=== PATIENT | female | born 1960 | race Caucasian/White ===

== ENCOUNTER → 2020-09-23 00:21 | Outpatient (CLI) | payer OTHER, SELFPAY ==
[2020-09-23 19:33] LABS: SARS-CoV-2 RNA PCR Negative
== END ==
PROVIDERS: PCP Emergency Medicine; Visit Provider Surgery
DX: Z01.812 Encounter for preprocedural laboratory examination (principal); Z20.822 Contact with and (suspected) exposure to COVID-19
CPT/HCPCS: C9803; U0003; U0005

== ENCOUNTER 2020-09-25 08:09 | Outpatient (CLI) | payer OTHER, SELFPAY ==
--- NOTE | 2020-09-25 08:15 | ECG_ITS ---
Measurements Intervals [place] Rate: 64 P: 27 MN: 152 QRS: 10 QRSD: 93 T: 34 QT: 391 QTc: 404 Interpretive Statements SINUS RHYTHM DELAYED PRECORDIAL R/S TRANSITION BASELINE ARTIFACT- I, II, III, AVR, AVL, AVF BORDERLINE ECG Electronically Signed On 09-25-2020 8:31:25 [employer]PERIENCE PLANNING STRATEGIST by Serge Roach D.O.
[2020-09-25 08:35] LABS: Hemoglobin 14.6 g/dL (12.0-15.0)
== END 2020-09-25 08:10 | disposition home or self-care (01) ==
LOC: ANHSURGERY 08:12
PROVIDERS: Anesthesiology; PCP Emergency Medicine; Visit Provider Surgery
DX: K43.2 Incisional hernia without obstruction or gangrene (principal); F17.210 Nicotine dependence, cigarettes, uncomplicated; Z01.818 Encounter for other preprocedural examination; R94.31 Abnormal electrocardiogram [ECG] [EKG]
CPT/HCPCS: 36415; 85014; 85018; 93005

== ENCOUNTER 2020-09-27 14:28 | Observation (INO) | payer OTHER, SELFPAY ==
[2020-09-18 19:12] VITALS: BMI 38.6
--- NOTE | 2020-09-24 17:39 | PM.IMHP ---
H&P: HPI History of Present Illness Date/Time: 09/24/20 17:39 Chief Complaint: incisional hernia Narrative: Angie Ponce is a 60 year old female who had hand assisted laparoscopic sigmoidectomy for diverticulitis in November of 2014. In [address] scan of the abdomen for some abdominal pain and was found to have an incisional hernia. The hernia is easily palpable. It has gotten bigger and is more painful. She is generally unable to reduce the hernia. The pain is worse with activity and particularly affects her ability to do her job. She is afraid this could affect her employment. The patient is taken to surgery now for incisional hernia repair with mesh, possible transversus abdominis myofascial flap advancement. Her only other abdominal surgery was noted to be a tubal ligation. Review of Systems Review of Systems: All systems reviewed & are unremarkable except as noted in HPI and below Constitutional: Constitutional: Denies chills, Reports fatigue, Denies fever(s) and Reports night sweats ENT: Denies headache(s), Reports nasal discharge, Reports sinus pressure and Reports other ( edentulous, wears dentures) Cardiovascular: Cardiovascular: Denies chest pain, Denies diaphoresis, Denies dyspnea, Denies paroxysmal nocturnal dyspnea and Reports other ( Palpitations) Respiratory: Respiratory: Denies chest congestion, Denies cough and Denies dyspnea Gastrointestinal: Gastrointestinal: Denies bloating, Denies constipation and Denies nausea Integumentary/Breasts: Skin/Breast: Denies lesions and Denies rash Neurologic: Denies confusion and Denies headache(s) Psychiatric: Psychiatric: Reports abnormal sleep pattern [facility] Past Medical History Medical History Asthma High cholesterol History of kidney stones Surgical History Surgical History History of carpal tunnel release History of partial colectomy History of tubal ligation Family History Family History Father Hypertension Family history of diabetes mellitus in first degree relative Family history of lung cancer Family history of heart disease in male family member before age 55 Mother Hypertension Sibling Hypertension Cerebrovascular accident Family history of chronic obstructive pulmonary disease Family history of diabetes mellitus in first degree relative Acute myocardial infarction Social History Social History Smoking status: Heavy tobacco smoker Tobacco type: cigarettes Smoking end date: 08/02/17 Additional smoking assessment comments: 1ppd x 40years Alcohol intake: never Living arrangements: with family Additional occupation/education comments: self employed Spiritual care concerns: No Meds Home Medications and Allergies Home Medications Medication Instructions Recorded Confirmed Type ascorbic acid (vitamin C) [Vitamin 500 mg PO DAILY 08/23/19 09/26/20 History C] aspirin [Adult Low Dose Aspirin] 81 mg PO DAILY 08/23/19 09/26/20 History cholecalciferol (vitamin D3) 2,000 unit PO DAILY 08/23/19 09/26/20 History [Vitamin D3] cinnamon bark [Cinnamon] 1,000 mg PO DAILY 08/23/19 09/26/20 History omega-3 fatty acids 1,000 mg 1,000 mg PO DAILY 08/16/20 09/26/20 History capsule albuterol sulfate 1 puff INHALATION PRN 09/18/20 09/26/20 History magnesium 400 mg PO DAILY 09/18/20 09/26/20 History polyethylene glycol 3350 [Miralax] 17 g PO DAILY 09/26/20 09/26/20 History psyllium husk [Metamucil] 1 tbsp PO DAILY 09/26/20 09/26/20 History Allergies Allergy/AdvReac Type Severity Reaction Status Date / Time hydrocodone AdvReac Intermediate Vomiting Verified 09/18/20 18:42 Exam Const: General: cooperative, comfortable, no acute distress, alert and awake; No confusion Nutritional Appearance: ob
--- NOTE | 2020-09-25 10:20 | WPDANESEPPF ---
Anes - Initial Pre Proc Eval Procedure: Operation Date: 09/26/20 10:30 Proposed Procedures p Repair Incisional Hernia With Mesh, Posterior Component Separation - Rodrigo Mota MD Date/Time: 09/25/20 10:20 Surgeon: Rodrigo Mota MD Pre Op Diagnosis: Incisional Hernia Patient Data Age: 60 Gender: F Height: 1.71 m Weight: 113.63 kg Allergies Allergy/AdvReac Type Severity Reaction Status Date / Time hydrocodone AdvReac Intermediate Vomiting Verified 09/18/20 18:42 Home Medications Medication Instructions Recorded Confirmed Type ascorbic acid (vitamin C) [Vitamin 500 mg PO DAILY 08/23/19 09/26/20 History C] aspirin [Adult Low Dose Aspirin] 81 mg PO DAILY 08/23/19 09/26/20 History cholecalciferol (vitamin D3) 2,000 unit PO DAILY 08/23/19 09/26/20 History [Vitamin D3] cinnamon bark [Cinnamon] 1,000 mg PO DAILY 08/23/19 09/26/20 History omega-3 fatty acids 1,000 mg 1,000 mg PO DAILY 08/16/20 09/26/20 History capsule albuterol sulfate 1 puff INHALATION PRN 09/18/20 09/26/20 History magnesium 400 mg PO DAILY 09/18/20 09/26/20 History polyethylene glycol 3350 [Miralax] 17 g PO DAILY 09/26/20 09/26/20 History psyllium husk [Metamucil] 1 tbsp PO DAILY 09/26/20 09/26/20 History Patient hx anesthesia problems: none Family hx anesthesia problems: none PMFSH Past Medical History Medical History Asthma High cholesterol History of kidney stones Surgical History Surgical History History of carpal tunnel release History of partial colectomy History of tubal ligation Family History Family History Father Hypertension Family history of diabetes mellitus in first degree relative Family history of lung cancer Family history of heart disease in male family member before age 55 Mother Hypertension Sibling Hypertension Cerebrovascular accident Family history of chronic obstructive pulmonary disease Family history of diabetes mellitus in first degree relative Acute myocardial infarction Social History Social History Smoking status: Heavy tobacco smoker Tobacco type: cigarettes Smoking end date: 08/02/17 Additional smoking assessment comments: 1ppd x 40years Alcohol intake: never Living arrangements: with family Additional occupation/education comments: self employed Spiritual care concerns: No Anes - Eval Final PreProcedure Day of Procedure 09/25/20 10:20 Patient weight: obese Heart: regular rate and rhythm Lungs: clear to auscultation and normal air movement Airway: Mallampati scale class III Neurological: alert and oriented Last oral intake: >/= 8 hours ASA classification: III Emergent: no Anesthetic plan: proceed Anesthesia type and monitoring: general ETT and standard monitoring Informed Consent: The patient's anesthetic plan and its attendant risks and benefits were discussed with the patient/family/POA. Questions were solicited and answers provided to the satisfaction of the patient/family/POA.
[2020-09-26] VITALS (13 sets, daily range): BP systolic 121–143; BP diastolic 60–107; PULSE 57–82; RESP 14–20; TEMP 36.1–36.6; O2SAT 91–100
[2020-09-26] MEDS: ACETAMINOPHEN 500 MG TABLET 1000 MG PO (09:36)
[2020-09-26] MEDS: LACTATED RINGERS 1,000 ML 30 ML IV CONT ×3 (09:40→14:15)
[2020-09-26] MEDS: KETOROLAC 15 MG/ML VIAL (*BKC) IV PUSH (09:42)
--- NOTE | 2020-09-26 10:21 | WPDHPUPDATE1 ---
History and Physical Update Update Date/Time: 09/26/20 10:21 History and Physical has been reviewed, including an updated exam of the patient. There are NO changes in the patient's condition. Risks, benefits, and alternatives have been discussed and questions answered. Patient agrees to proceed with procedure.
[2020-09-26] MEDS: ceFAZolin 2 GM/D5W 50 ML 2 GM/50 ML BAG IVPB (10:32)
[2020-09-26] MEDS: ONDANSETRON INJ 4 MG/2 ML VIAL IV PUSH (14:01)
--- NOTE | 2020-09-26 14:08 | PM.PROC ---
Procedure Note - Detailed Date of procedure: 09/26/20 Pre-op diagnosis: Incisional Hernia Incisional hernia Post-op diagnosis: same Procedure performed: Incisional hernia repair with mesh, right-sided transversus abdominis myofascial flap advancement 6 cm. Description of procedure: The patient was taken to surgery and induced into general anesthesia. Perkins catheter was placed. The entire abdomen was prepped and draped. The previous scar was excised and discarded. Incision was created above and below the umbilicus and was carried down through the midline fascia. The peritoneal cavity was entered and the peritoneal was extended the length the wound. The hernia was identified and was a sizable defect in the midline but mostly involving the right side of the fascia. There was also an umbilical hernia.. There were some omental adhesions to the anterior abdominal wall. These were taken down sharply. There was essentially no blood loss. Cautery was used for hemostasis. I started with the patient's left side. A retro rectus plane was developed and extended the length of the wound as well as all the way down to the suprapubic area. The retro rectus plane was particularly wide on the patient's left side. It was also extended up under the xiphoid in the cephalad direction. It did not appear that we would need to do a transversus abdominis release on the left as there was a very wide rectus muscle and very little fascia defect on the left side of midline. I then went to the patient's left side and started the same dissection on the right. The right posterior rectus sheath was freed from the rectus muscle. I established the posterior rectus plane here as well. Similarly this plane was continued all the way up to the area beyond the xiphoid and down to the retropubic area. The left and right posterior rectus planes were connected with one another cephalad and caudad. There was still too much tension to close the posterior rectus fascia to itself, so I did go ahead with a transversus abdominis release on the patient's right side. I started again at the right costal margin and divided the transversus abdominis muscle over a clamp. This was continued all the way down to the semi circular line. I divided the transversus medial to the neurovascular bundles innervating the overlying rectus muscle. There were a few holes in the peritoneum that I repaired with 3 0 Vicryl suture. I then dissected far laterally to the axillary line in the plane deep to the transversus. Once this was completed, I reviewed all the areas of dissection. Hemostasis was good and there was an extensive plane that the mesh could be placed within. I then closed the posterior rectus fascia to itself with running 0 Vicryl suture. An extra large piece of soft polypropylene mesh was brought into the field. It was evident that 1 piece of mesh would not be enough to sufficiently cover the entire plane of dissection. The 1st piece of mesh was placed in rectangular fashion with the mesh slightly centered more to the right where the more extensive dissection in the space deep to the transversus abdominis had been performed. It still covered all the way to the edge of the rectus muscle on the left side. This 1st piece was placed predominantly in the upper abdomen. A 2nd piece of mesh was brought into the field. This piece of mesh was placed in rosalinda fashion. It covered the retropubic area as well as the entire area of the hernia. Once it was laid out in good position, I placed a 19 [place] Alonzo drain in the retrorectus space and brought it out through the left lower quadrant. It was sutured to the skin with 2 0 silk. I then proceeded with closure of the midline fascia. #1 PDS suture was used in bidirectional running fashion to close the midline fascia. I closed the subcutaneous with interrupted 3 0 Vicryl sutures. The skin was loosely approximated with interrupted 4 0 Vicryl suture. The wound was dressed
[2020-09-26] MEDS: fentaNYL CITRATE INJ (*CRX) 100 MCG/2 ML VIAL 25 MCG IV PUSH ×4 (14:18→15:15)
[2020-09-26] MEDS: diphenhydrAMINE HCl INJ 50 MG/ML VIAL 25 MG IV PUSH (14:42)
[2020-09-26] MEDS: SCOPOLAMINE 1.5 MG PATCH TRANSDERM (14:42)
--- NOTE | 2020-09-26 16:15 | ADMGEN ---
This patient, Angie Ponce, was admitted to Medical Room 248-. Patient/family oriented to hospital policies and general routines including ID bracelet, bed and alarms, visiting hours, pain management, procedures, bathroom and other care routines, personal items, smoking policy, room service/diet, and visiting hours. Information on how to activate the Rapid Response Team has been discussed. Patient/Family are encouraged to report perceived risks to care and to ask questions if they do not understand what they are told or what they should do.
[2020-09-26] MEDS: MORPHINE SULFATE (*CRX) 4 MG/ML INJ IV PUSH ×2 (16:30→20:40)
[2020-09-26] MEDS: IBUPROFEN IV 800 MG/200 ML 800 MG/200 ML BAG 400 MG IVPB ×2 (17:26→23:23)
[2020-09-26] MEDS: LACTATED RINGERS 1,000 ML 100 ML IV CONT (17:26)
[2020-09-26] MEDS: FAMOTIDINE 20 MG/2 ML VIAL IV PUSH (20:33)
[2020-09-26] MEDS: ENOXAPARIN 30 MG/0.3 ML SYRINGE SUB-Q (20:33)
[2020-09-27] VITALS (7 sets, daily range): BP systolic 103–118; BP diastolic 47–56; PULSE 66–73; RESP 14–16; TEMP 36–37.3; O2SAT 93–96
[2020-09-27 05:24] LABS: Hematocrit 36.5 % (37.0-47.0); Hemoglobin 11.9 g/dL (12.0-15.0); Mean Corpuscular HGB Conc 32.6 g/dl (32-36); Mean Corpuscular Hemoglobin 29.9 pg (26-34); Mean Corpuscular Volume 91.7 fl (80-100); Mean Platelet Volume 9.2 fl (7.4-10.4); Platelet Count Result 243 k/mm3 (150-375); Red Blood Count 3.98 M/mm3 (4.2-5.4); Red Cell Distribution Width 13.1 % (11.5-14.5)
[2020-09-27 05:41] LABS: Anion Gap 5 mmol/L (8-16); Blood Urea Nitrogen 19 mg/dL (7-17); Calcium 8.9 mg/dL (8.4-10.2); Carbon Dioxide 28 mmol/L (22-30); Chloride 104 mmol/L (98-107); Estimated CRCL calculation 80 ml/min; Estimated Glomerular Filt Rate > 60; Glucose 111 mg/dL (65-105); Potassium 4.4 mmol/L (3.4-5.0); Sodium 137 mmol/L (137-145)
[2020-09-27] MEDS: IBUPROFEN IV 800 MG/200 ML 800 MG/200 ML BAG 400 MG IVPB ×3 (06:05→17:24)
[2020-09-27] MEDS: LACTATED RINGERS 1,000 ML 100 ML IV CONT ×2 (06:07→15:32)
[2020-09-27] MEDS: ACETAMINOPHEN 500 MG TABLET PO ×2 (07:49→13:49)
[2020-09-27] MEDS: ENOXAPARIN 30 MG/0.3 ML SYRINGE SUB-Q ×2 (09:18→20:20)
[2020-09-27] MEDS: ASPIRIN 81 MG ENTERIC TABLET PO (09:19)
[2020-09-27] MEDS: CHOLECALCIFEROL 1,000 UNITS TABLET 2000 UNITS PO (09:19)
[2020-09-27] MEDS: ASCORBIC ACID 500 MG TABLET PO (09:19)
[2020-09-27] MEDS: PSYLLIUM POWDER PACKET 1 PACKET PO ×2 (09:19→17:28)
[2020-09-27] MEDS: FAMOTIDINE 20 MG/2 ML VIAL IV PUSH (09:19)
[2020-09-27] MEDS: polyethylene glycoL 3350 17 GM POWD.PACK PO (09:32)
[2020-09-27] MEDS: MAGNESIUM OXIDE 400 MG TABLET PO (09:49)
[2020-09-27] MEDS: OMEGA 3 POLYUNSAT FATTY ACIDS 1 GM CAP PO (09:49)
--- NOTE | 2020-09-27 10:48 | WPDANESPN ---
Anes - Prog Note Post-Op Date/Time: 09/27/20 10:48 Cardiovascular status: normal Respiratory status: normal Airway patency: baseline Mental status: baseline Post-Op hydration status: normal Vital Signs: Last Vital Signs Temp 36.0 C L 09/27/20 07:39 Pulse 68 09/27/20 07:39 Resp 16 09/27/20 09:34 BP 106/51 L 09/27/20 07:39 Pulse Ox 93 09/27/20 09:34 Pain Score (VAS): 3 I/O: Intake & Output 09/26/20 09/27/20 09/27/20 23:59 07:59 15:59 Intake Total 750 1600 Output Total 20 570 Balance 730 1030 Laboratory Tests 09/27/20 05:01 09/27/20 05:01 09/27/20 09/27/20 05:01 05:01 WBC 13.0 H RBC 3.98 L Hgb 11.9 L Hct 36.5 L MCV 91.7 MCH 29.9 MCHC 32.6 RDW 13.1 Plt Count 243 MPV 9.2 Sodium 137 Potassium 4.4 Chloride 104 Carbon Dioxide 28 Anion Gap 5 L BUN 19 H Creatinine 0.90 Estim Creat Clear Calc 80 Estimated GFR > 60 Glucose 111 H Calcium 8.9 Post-procedural complaints: none Patient Feedback: Patient satisfied with anesthetic care.
--- NOTE | 2020-09-27 12:13 | PM.PNGS ---
Progress Note: A&P Assessment and Plan (1) Incisional hernia without obstruction or gangrene: Code(s): K43.2 - Incisional hernia without obstruction or gangrene Status: Chronic Assessment and Plan: doing well postop day 1. Patient will get out of bed and at least up in a chair today. Encouraged use of incentive spirometer. Continue regular dose of IV ibuprofen for now. Also has p.r.n. doses Percocet or IV morphine. SHIV Perkins tomorrow. Advance diet slowly. Patient does have chronic constipation and I have given her both Metamucil and MiraLax as well as Senokot at bedtime. She will take the Metamucil twice a day, the MiraLax will be once a day. Repeat labs and clinical exam again tomorrow. So far doing well. Pain control is adequate and amount of pain is not unexpected. Subjective Subjective Date/Time Seen: 09/27/20 12:13 Post Op day: 1 Patient reports: still having pain ( P.r.n. analgesics helped, tolerable), tolerating liquids well, no flatus, no bowel movement and afebrile Review of Systems Review of Systems: All systems reviewed & are unremarkable except as noted in HPI and below Constitutional: Constitutional: Denies headache(s) Cardiovascular: Cardiovascular: Denies chest pain and Denies dyspnea Respiratory: Respiratory: Denies cough and Denies dyspnea Gastrointestinal: Gastrointestinal: Reports as per HPI, Reports abdominal pain, Denies nausea and Denies vomiting Neurologic: Denies confusion and Denies headache(s) Exam Const: General: comfortable and no acute distress; No confusion Orientation/consciousness: patient oriented x3 and No confusion GI: Inspection: incision ( did expected bloody drainage, intact, no active bleeding, no hematoma.), obesity and other ( AFUA drain output largely sanguinous) GI Palp: Yes Soft to palpation, Yes Tenderness to palpation present (GI) ( Remains diffusely tender, incisional.), No Guarding due to palpation present (GI), No Hernia present, No Palpable mass present and No Rebound tenderness present Auscultation: Hypoactive bowel sounds present Urinary Catheter: Urinary Catheter: patent and draining Neuro: General: patient oriented x3, no focal motor deficits and No confusion Extrem: General: no calf tenderness and no edema Psych: Affect: normal affect Insight: Good insight present (Psych) Judgement: Good judgement present (Psych) Objective Data Vital Signs Vital Signs: Vital Signs - 24 hr 09/26/20 13:42 09/26/20 13:55 09/26/20 14:10 Temperature 36.6 C Pulse Rate 82 61 57 L Respiratory Rate 16 16 15 Blood Pressure 130/91 H 141/71 H 143/80 H Pulse Oximetry 100 100 100 09/26/20 14:25 09/26/20 14:50 09/26/20 15:05 Temperature Pulse Rate 60 65 68 Respiratory Rate 15 14 14 Blood Pressure 132/107 H 125/75 129/66 Pulse Oximetry 93 91 91 09/26/20 15:20 09/26/20 15:35 09/26/20 15:45 Temperature Pulse Rate 68 67 66 Respiratory Rate 14 14 20 Blood Pressure 121/73 125/72 135/70 Pulse Oximetry 92 96 97 09/26/20 18:03 09/26/20 20:00 09/26/20 21:50 Temperature 36.6 C 36.1 C L Pulse Rate 66 63 63 Respiratory Rate 18 16 16 Blood Pressure 143/71 H 128/60 Pulse Oximetry 97 96 96 09/27/20 01:20 09/27/20 04:00 09/27/20 07:39 Temperature 36.7 C 36.7 C 36.0 C L Pulse Rate 73 72 68 Respiratory Rate 16 16 14 Blood Pressure 105/50 L 118/51 L 106/51 L Pulse Oximetry 94 95 93 09/27/20 09:34 09/27/20 10:54 Temperature 37.3 C Pulse Rate 72 Respiratory Rate 16 15 Blood Pressure 103/47 L Pulse Oximetry 93 95 Intake/Output Intake/Output: Intake & Output 09/24/20 09/25/20 09/26/20 09/27/20 23:59 23:59 23:59 23:59 Intake Total 2800 1600 Output Total 145 570 Balance 2655 1030 Meds/Results Medications: Active Medications Generic Name Dose Route Start Last Admin Trade Name Freq PRN Reason Stop Dose Admin Acetaminophen 500 mg 09/26/20 16:10 09/27/20 07:49 Acetaminophen 500 Mg Tablet PO 500 mg
--- NOTE | 2020-09-27 16:04 | PC.NURSE ---
On 09/27/20, the student, [ Christine Campbell], provided care and completed [facility] documentation on this patient. I have reviewed the student's documentation and agree with the findings.
[2020-09-27] MEDS: FAMOTIDINE 20 MG TABLET PO (20:20)
[2020-09-27] MEDS: SENNA/DOCUSATE SODIUM TABLET 2 TAB PO (20:20)
[2020-09-27] MEDS: LACTATED RINGERS 1,000 ML 80 ML IV CONT (23:29)
[2020-09-27] MEDS: IBUPROFEN IV 800 MG/200 ML 800 MG/200 ML BAG 200 MG IVPB (23:29)
[2020-09-28] VITALS: BP 122/54; PULSE 67; RESP 16; TEMP 36.3; O2SAT 95
[2020-09-28 05:28] LABS: Hematocrit 35.8 % (37.0-47.0); Hemoglobin 11.4 g/dL (12.0-15.0); Mean Corpuscular HGB Conc 31.8 g/dl (32-36); Mean Corpuscular Hemoglobin 29.5 pg (26-34); Mean Corpuscular Volume 92.5 fl (80-100); Mean Platelet Volume 9.2 fl (7.4-10.4); Platelet Count Result 227 k/mm3 (150-375); Red Blood Count 3.87 M/mm3 (4.2-5.4); Red Cell Distribution Width 13.3 % (11.5-14.5); White Blood Count 9.6 K/mm3 (4.5-10.0)
[2020-09-28 05:44] VITALS: BP 139/53; PULSE 60; RESP 16; TEMP 35.9; O2SAT 96
[2020-09-28 05:50] LABS: Potassium 3.7 mmol/L (3.4-5.0)
[2020-09-28 05:59] LABS: Anion Gap 3 mmol/L (8-16); Blood Urea Nitrogen 14 mg/dL (7-17); Calcium 8.5 mg/dL (8.4-10.2); Carbon Dioxide 31 mmol/L (22-30); Chloride 107 mmol/L (98-107); Estimated CRCL calculation 89 ml/min; Estimated Glomerular Filt Rate > 60; Glucose 99 mg/dL (65-105); Sodium 141 mmol/L (137-145)
[2020-09-28] MEDS: IBUPROFEN IV 800 MG/200 ML 800 MG/200 ML BAG 400 MG IVPB (06:47)
[2020-09-28] MEDS: oxyCODONE/ACETAMINOPHEN (*CRX) 5-325 MG TABLET 1 TABLET PO ×2 (06:56→12:14)
[2020-09-28 08:15] VITALS: BP 142/58; PULSE 76; RESP 16; TEMP 35.9; O2SAT 96
[2020-09-28] MEDS: ASCORBIC ACID 500 MG TABLET PO (08:34)
[2020-09-28] MEDS: ASPIRIN 81 MG ENTERIC TABLET PO (08:34)
[2020-09-28] MEDS: OMEGA 3 POLYUNSAT FATTY ACIDS 1 GM CAP PO (08:34)
[2020-09-28] MEDS: PSYLLIUM POWDER PACKET 1 PACKET PO ×2 (08:35→16:05)
[2020-09-28] MEDS: FAMOTIDINE 20 MG TABLET PO ×2 (08:35→20:16)
[2020-09-28] MEDS: ENOXAPARIN 30 MG/0.3 ML SYRINGE SUB-Q ×2 (08:35→20:16)
[2020-09-28] MEDS: MAGNESIUM OXIDE 400 MG TABLET PO (08:35)
[2020-09-28] MEDS: polyethylene glycoL 3350 17 GM POWD.PACK PO (08:35)
--- NOTE | 2020-09-28 10:00 | PM.PNGS ---
Progress Note: A&P Assessment and Plan (1) Incisional hernia without obstruction or gangrene: Code(s): K43.2 - Incisional hernia without obstruction or gangrene Status: Chronic Assessment and Plan: doing well, mauricio out, low fiber diet, encourage OOB/IS Subjective Subjective Date/Time Seen: 09/28/20 10:00 feels good, decreased pain, +flatus Review of Systems Review of Systems: All systems reviewed & are unremarkable except as noted in HPI and below Exam Const: General: cooperative, comfortable and no acute distress Resp: Effort & Inspection: normal respiratory effort Auscultation: clear to auscultation bilaterally Cardio: Rate: regular rate Rhythm: regular rhythm GI: Inspection: normal to inspection, distended and incision GI Palp: Yes Soft to palpation, Yes Tenderness to palpation present (GI) and No Guarding due to palpation present (GI) Other: soft, sl dist, relinda TTP, AFUA c s/s output Objective Data Vital Signs Vital Signs: Vital Signs - 24 hr 09/27/20 10:54 09/27/20 13:33 09/27/20 21:51 Temperature 37.3 C 36.0 C L 36.4 C L Pulse Rate 72 70 66 Respiratory Rate 15 16 16 Blood Pressure 103/47 L 115/53 L 117/56 L Pulse Oximetry 95 95 96 09/28/20 00:00 09/28/20 05:44 09/28/20 08:15 Temperature 36.3 C L 35.9 C L 35.9 C L Pulse Rate 67 60 76 Respiratory Rate 16 16 16 Blood Pressure 122/54 L 139/53 L 142/58 H Pulse Oximetry 95 96 96 Intake/Output Intake/Output: Intake & Output 09/25/20 09/26/20 09/27/20 09/28/20 23:59 23:59 23:59 23:59 Intake Total 2800 4680 930 Output Total 145 2060 10 Balance 2655 2620 920 Meds/Results Medications: Active Medications Generic Name Dose Route Start Last Admin Trade Name Freq PRN Reason Stop Dose Admin Acetaminophen 500 mg 09/26/20 16:10 09/27/20 13:49 Acetaminophen 500 Mg Tablet PO 500 mg Q6H PRN Administration Mild Pain (1-3) or Fever Albuterol 1 puff 09/26/20 16:30 Albuterol Sulfate (*Sp) Aerosol 1 Puff INHALATION DAILY PRN SHORTNESS OF BREATH Ascorbic Acid 500 mg 09/27/20 09:00 09/28/20 08:34 Ascorbic Acid 500 Mg Tablet PO 500 mg DAILY CRISTOBAL Administration Aspirin 81 mg 09/27/20 09:00 09/28/20 08:34 Aspirin 81 Mg Enteric Tablet PO 81 mg DAILY CRISTOBAL Administration Enoxaparin Sodium 30 mg 09/26/20 21:00 09/28/20 08:35 Enoxaparin 30 Mg/0.3 Ml Syringe SUB-Q 30 mg Q12HR CRISTOBAL Administration Famotidine 20 mg 09/27/20 21:00 09/28/20 08:35 Famotidine 20 Mg Tablet PO 20 mg Q12HR CRISTOBAL Administration Fish Oil 1 gm 09/27/20 09:00 09/28/20 08:34 [place] 3 Polyunsat Fatty Acids 1 Gm Cap PO 1 gm DAILY CRISTOBAL Administration Ibuprofen 800 mg in 200 mls @ 400 mls/hr 09/26/20 18:00 09/28/20 07:17 Caldolor 800 Mg/200 Ml IVPB Infused Q6HR CRISTOBAL Infusion Lactated Ringer's 1,000 mls @ 80 mls/hr 09/26/20 16:10 09/27/20 23:29 Lr - Lactated Ringers Iv IV CONT 80 mls/hr .[id number] CRISTOBAL Administration Ibuprofen 800 mg 09/28/20 09:58 Ibuprofen 400 Mg Tablet PO Q6H PRN Abdominal Cramping Magnesium Oxide 400 mg 09/27/20 09:00 09/28/20 08:35 Magnesium Oxide 400 Mg Tablet PO 400 mg DAILY CRISTOBAL Administration Morphine Sulfate 2 mg 09/26/20 16:10 Morphine Sulfate (*Crx) 2 Mg/Ml Inj IV PUSH Q2H PRN Pain Rated 4-6 Morphine Sulfate 4 mg 09/26/20 16:10 09/26/20 20:40 Morphine Sulfate (*Crx) 4 Mg/Ml Inj IV PUSH 4 mg Q2H PRN Administration Pain Rated 7-10 Naloxone HCl 0.1 mg 09/26/20 16:10 Naloxone Hcl 0.4 Mg/Ml Vial IV PUSH Q2M PRN Opiate Reversal Ondansetron HCl 4 mg 09/26/20 16:10 Ondansetron Inj 4 Mg/2 Ml Vial IV PUSH Q4H PRN Nausea And Vomiting Oxycodone/Acetaminophen 1 tablet 09/26/20 16:10 09/28/20 06:56 Oxycodone/Acetaminophen (*Crx) 5-325 Mg Tablet PO 1 tablet Q4H PRN Administration Pain Rated 4-6 Oxycodone/Acetaminophen 2 tablet 09/26/20 16:10
[2020-09-28] MEDS: CHOLECALCIFEROL 1,000 UNITS TABLET 2000 UNITS PO (12:09)
[2020-09-28] MEDS: ONDANSETRON INJ 4 MG/2 ML VIAL IV PUSH (12:18)
[2020-09-28 14:30] VITALS: BP 117/57; PULSE 72; RESP 16; TEMP 36.1; O2SAT 97
[2020-09-28] MEDS: LACTATED RINGERS 1,000 ML 80 ML IV CONT (16:23)
[2020-09-28] MEDS: IBUPROFEN 400 MG TABLET 800 MG PO (17:56)
[2020-09-28 20:00] VITALS: BP 114/61; PULSE 74; RESP 18; TEMP 37.1; O2SAT 95
[2020-09-28] MEDS: SENNA/DOCUSATE SODIUM TABLET 2 TAB PO (20:16)
[2020-09-28 22:30] VITALS: O2SAT 95
[2020-09-29] VITALS: BP 126/54; PULSE 73; RESP 18; TEMP 36.5; O2SAT 95
[2020-09-29] MEDS: IBUPROFEN 400 MG TABLET 800 MG PO ×2 (03:31→10:45)
[2020-09-29 05:25] LABS: Hematocrit 33.8 % (37.0-47.0); Hemoglobin 10.8 g/dL (12.0-15.0); Mean Corpuscular Hemoglobin 29.5 pg (26-34); Mean Corpuscular Volume 92.3 fl (80-100); Mean Platelet Volume 9.1 fl (7.4-10.4); Platelet Count Result 225 k/mm3 (150-375); Red Blood Count 3.66 M/mm3 (4.2-5.4); Red Cell Distribution Width 13.1 % (11.5-14.5); White Blood Count 8.4 K/mm3 (4.5-10.0)
[2020-09-29 05:41] LABS: Anion Gap 3 mmol/L (8-16); Blood Urea Nitrogen 10 mg/dL (7-17); Calcium 8.4 mg/dL (8.4-10.2); Carbon Dioxide 30 mmol/L (22-30); Chloride 107 mmol/L (98-107); Estimated CRCL calculation 89 ml/min; Estimated Glomerular Filt Rate > 60; Glucose 111 mg/dL (65-105); Potassium 3.8 mmol/L (3.4-5.0); Sodium 140 mmol/L (137-145)
[2020-09-29 05:56] VITALS: BP 118/75; PULSE 82; RESP 20; TEMP 36.2; O2SAT 95
[2020-09-29] MEDS: ASPIRIN 81 MG ENTERIC TABLET PO (08:38)
[2020-09-29] MEDS: OMEGA 3 POLYUNSAT FATTY ACIDS 1 GM CAP PO (08:38)
[2020-09-29] MEDS: MAGNESIUM OXIDE 400 MG TABLET PO (08:38)
[2020-09-29] MEDS: FAMOTIDINE 20 MG TABLET PO (08:38)
[2020-09-29] MEDS: ASCORBIC ACID 500 MG TABLET PO (08:38)
[2020-09-29] MEDS: ENOXAPARIN 30 MG/0.3 ML SYRINGE SUB-Q (08:38)
[2020-09-29] MEDS: CHOLECALCIFEROL 1,000 UNITS TABLET 2000 UNITS PO (08:38)
--- NOTE | 2020-09-29 09:05 | PM.DS ---
DS: Admitting Diagnosis Admitting Diagnosis Admitting Diagnosis: incisional hernia DS: Discharge Diagnosis Discharge Diagnosis (1) Incisional hernia without obstruction or gangrene: Code(s): K43.2 - Incisional hernia without obstruction or gangrene Status: Chronic Assessment and Plan: s/p repair by Dr. Mota on 09/26, doing well, cont routine postop instructions as outlined in discharge packet, po analgesia, f/u 2 wks (2) Asthma: Qualifiers: Asthma severity: mild Asthma persistence: intermittent Asthma complication type: uncomplicated Qualified Code(s): J45.20 - Mild intermittent asthma, uncomplicated Code(s): J45.909 - Unspecified asthma, uncomplicated Status: Chronic Assessment and Plan: stable, cont current mgmt (3) Morbid obesity with BMI of 40.0-44.9, adult: Code(s): E66.01 - Morbid (severe) obesity due to excess calories; Z68.41 - Body mass index [BMI]40.0-44.9, adult Status: Chronic Assessment and Plan: dietary and lifestyle modifications discussed DS: Summary Hospital Course Reason for hospitalization: incisional hernia Hospital Course: Pt is a 60 y/o F presenting to hospital c large incisional hernia. Pt underwent repair c mesh by Dr. Mota on 09/26, please see op report for full details. Pt did well postop, and pain initially controlled via IV analgesia. Pt progressively c less pain, and by time of discharge all pain was controlled via po analgesia. Pt also had ROBF by the time of discharge and was able to alyson reg diet. Pt was ambulating s issue and doing well c light activity. Pt given instructions for local wound care and AFUA dc'd prior to discharge. Pt to f/u c Dr. Mota in 2 wks. Status at Discharge Functional status at discharge: independent ambulation Overall status at discharge: patient is progressing back to baseline Time Spent with Patient Time attestation: Total time spent providing and/or coordinating discharge services: Time spent: Less than 30 minutes Exam Const: General: cooperative, comfortable, no acute distress, awake and Physically active Nutritional Appearance: obese Orientation/consciousness: patient oriented x3 Resp: Auscultation: clear to auscultation bilaterally Cardio: Rate: regular rate Rhythm: regular rhythm GI: Inspection: normal to inspection, distended and incision GI Palp: Yes Soft to palpation, Yes Tenderness to palpation present (GI) and No Guarding due to palpation present (GI) Other: soft, sl dist, erlinda TTP, incision C/D/I, AFUA c scant s/s drainage and removed DS: Data Data Completed and Pending Labs on day of discharge: Labs from last 24 hours 09/29/20 09/29/20 04:59 04:59 WBC 8.4 RBC 3.66 L Hgb 10.8 L Hct 33.8 L MCV 92.3 MCH 29.5 MCHC 32.0 RDW 13.1 Plt Count 225 MPV 9.1 Sodium 140 Potassium 3.8 Chloride 107 Carbon Dioxide 30 Anion Gap 3 L BUN 10 Creatinine 0.80 Estim Creat Clear Calc 89 Estimated GFR > 60 Glucose 111 H Calcium 8.4 Discharge Plan Discharge Attending physician on discharge: Rodrigo Mota Discharging Clinician: Tammy Moreno Anticipated Discharge Date/Time: 09/29/20 09:03 Patient Disposition: Home, Self-Care Activity: may shower and other - see discharge instructions Diet: as tolerated and regular Wound Care Instructions: other - see discharge instructions Discharge Instructions: Ambulate 3-4 x per day and as tolerated. No lifting over 15-20lbs. May bathe or shower. Stairs are OK. May drive a car in 3 days. Remove any dressings before shower and replace after. Stand Alone Forms: General Discharge Instructions Follow-up/Referrals: Rodrigo Mota MD [Physician] - 2 Weeks Discharge Medications: New sennosides-docusate sodium [Senokot-S] 8.6-50 mg Tablet 2 tab PO HS Qty: 20 RF: 0 Metamucil (with sugar) 3.4 gram Powder In Packet 1 packet PO BID Qty: 30 RF: 0 oxy
== END 2020-09-29 11:00 | disposition home or self-care (01) ==
LOC: ANHSURGERY 14:32 → ANH2MED 09-29 09:05
PROVIDERS: Admitting Provider Surgery; PCP Emergency Medicine; Visit Provider Surgery
PROC: 0WQF0ZZ Repair Abdominal Wall, Open Approach (ICD-10-PCS; CPT 49560; principal; 2020-09-26 10:30)
DX: K43.2 Incisional hernia without obstruction or gangrene (principal); K59.09 Other constipation; G89.18 Other acute postprocedural pain; J45.20 Mild intermittent asthma, uncomplicated; E78.00 Pure hypercholesterolemia, unspecified; F17.210 Nicotine dependence, cigarettes, uncomplicated; Z79.82 Long term (current) use of aspirin; E66.01 Morbid (severe) obesity due to excess calories; Z68.39 Body mass index [BMI] 39.0-39.9, adult; Z90.49 Acquired absence of other specified parts of digestive tract; Z87.19 Personal history of other diseases of the digestive system
CPT/HCPCS: 49560; 49568; 15734; 36415; 80048; 85014; 85018; 85027; 93005; A9270; C1781; C9290; C9803; G0378; J0690; J1100; J1170; J1200; J1650; J1741; J1885; J2250; J2270; J2405; J2704; J2710; J3010; J7120; U0003; U0005

== ENCOUNTER 2021-03-29 17:07 | Emergency (ER) | payer OTHER, SELFPAY ==
--- NOTE | ~2021-03-29 | XR_ITS ---
XR chest 2V DATE: 03/29/2021 17:26 INDICATION: Post Covid productive cough, difficulty breathing. Past smoker. TECHNIQUE: 2 views COMPARISON: 06/17/2019 CT lung screening examinations FINDINGS: There is an ill-defined to 1.5 cm opacity overlying the lateral right upper lung field. Dif ferential diagnosis includes focal infiltrate, scarring or mass lesion. CT chest examination is recom mended. The lungs otherwise appear clear. No pleural effusion or pulmonary vascular congestion or pneumothora x. Normal heart size. No hilar or mediastinal enlargement. IMPRESSION: Ill-defined density overlying lateral right upper lung; diffusion diagnosis includes focal infiltrate , scarring or urinary mass lesion. CT thorax is recommended. Reviewed, dictated and finalized at [facility]. IMPRESSION: Ill-defined density overlying lateral right upper lung; diffusion diagnosis inc ludes focal infiltrate, scarring or urinary mass lesion. CT thorax is recommend ed.
--- NOTE | 2021-03-29 17:10 | ED.GENADULT ---
HPI - General Adult General Chief complaint: Upper Respiratory Infection Stated complaint: sob Time Seen by Provider: 03/29/21 17:42 Source: patient Mode of arrival: ambulatory Limitations: no limitations History of Present Illness HPI narrative: 60-year-old female patient presents to the [facility] with complaints of shortness of breath. Patient was recently diagnosed with Covid and has now been off quarantine for about 4 days. Patient states she continues to have worsening shortness of breath. Denies any difficulty with breathing prior to getting Covid. Patient states she was a former smoker of 45 years and quit about 2 years ago. Denies being on any daily medication. Denies being treated with any type of treatments when she was diagnosed with Covid. Patient denies any pain at this time. Related Data Home Medications Medication Instructions Recorded Confirmed ascorbic acid (vitamin C) [Vitamin 500 mg PO DAILY 08/23/19 10/28/20 C] aspirin [Adult Low Dose Aspirin] 81 mg PO DAILY 08/23/19 10/28/20 cholecalciferol (vitamin D3) 2,000 unit PO DAILY 08/23/19 10/28/20 [Vitamin D3] cinnamon bark [Cinnamon] 1,000 mg PO DAILY 08/23/19 10/28/20 omega-3 fatty acids 1,000 mg 1,000 mg PO DAILY 08/16/20 10/28/20 capsule albuterol sulfate 1 puff INHALATION PRN 09/18/20 10/28/20 magnesium 400 mg PO DAILY 09/18/20 10/28/20 Allergies Allergy/AdvReac Type Severity Reaction Status Date / Time hydrocodone AdvReac Intermediate Vomiting Verified 10/28/20 09:28 Review of Systems Review of Systems: CONSTITUTIONAL: Denies fever, chills, or sweats. EYES: Denies visual changes, redness, or discharge. ENT: Denies rhinorrhea, congestion, sore throat, or otalgia. CARDIOVASCULAR: Denies chest pain, palpitations, or edema. RESPIRATORY: Denies cough, positive dyspnea. GASTROINTESTINAL: Denies abdominal pain, nausea, vomiting, or diarrhea. GENITOURINARY: Denies dysuria or hematuria. SKIN: Denies rash or itching. MUSCULOSKELETAL: Denies back pain, joint pain, or myalgia. NEUROLOGIC: Denies headache, numbness, or weakness. PSYCHIATRIC: Denies anxiety or depression. [facility], [facility] Past Medical History Medical History (Updated 03/29/21 @ 17:55 by FLORECITA Manuel) Asthma Diverticulitis Endometriosis High cholesterol History of kidney stones Hypercholesterolemia Morbid obesity with BMI of 40.0-44.9, adult Rectal polyp Sleep apnea Surgical History Surgical History History of carpal tunnel release History of incisional hernia repair 09/26/20 Incisional hernia repair with mesh, right-sided transversus abdominis myofascial flap advancement 6 cm. History of partial colectomy History of tubal ligation Family History Family History Father Hypertension Family history of diabetes mellitus in first degree relative Family history of lung cancer Family history of heart disease in male family member before age 55 Mother Hypertension Sibling Hypertension Cerebrovascular accident Family history of chronic obstructive pulmonary disease Family history of diabetes mellitus in first degree relative Acute myocardial infarction Social History Social History Smoking packs per day: 1 Smoking cigarettes per day: 20.0 Years smoked: 40 Smoking pack-years: 40.00 Tobacco type: cigarettes Smoking end date: 08/02/17 Additional smoking assessment comments: 1ppd x 40years Alcohol intake: never Substance use: never Additional occupation/education comments: self employed Gender identity (if verbalized by the patient): Female Sexual Orientation (if Verbalized by the Patient): Straight or Heterosexual Spiritual care concerns: No Comments At the time of my signature I agree with nursing past medical history, surgical, social, and family history. There is n
[2021-03-29 17:16] VITALS: BP 141/73; PULSE 97; RESP 18; TEMP 36.9; O2SAT 97
--- NOTE | 2021-03-29 18:04 | ECG_ITS ---
Measurements Intervals [place] Rate: 75 P: 31 IL: 141 QRS: -2 QRSD: 93 T: 44 QT: 366 QTc: 409 Interpretive Statements SINUS RHYTHM INCOMPLETE RIGHT BUNDLE BRANCH BLOCK BASELINE ARTIFACT- I, II, III, AVR BORDERLINE ECG Electronically Signed On 03-30-2021 8:16:36 CDT by Serge Roach D.O.
== END 2021-03-29 17:58 | disposition short-term general hospital (02) ==
PROVIDERS: Emergency Provider Nurse Practitioner Family
DX: R06.02 Shortness of breath (principal); R93.9 Diagnostic imaging inconclusive due to excess body fat of patient; F17.210 Nicotine dependence, cigarettes, uncomplicated; J45.909 Unspecified asthma, uncomplicated; N80.9 Endometriosis, unspecified; E78.00 Pure hypercholesterolemia, unspecified; E66.01 Morbid (severe) obesity due to excess calories; Z68.38 Body mass index [BMI] 38.0-38.9, adult; G47.30 Sleep apnea, unspecified; Z79.82 Long term (current) use of aspirin
CPT/HCPCS: 71046; 93005; 99213; G0463

== ENCOUNTER 2021-03-29 18:08 | Emergency (ER) | payer OTHER, SELFPAY ==
--- NOTE | ~2021-03-29 | CT_ITS ---
EXAMINATION: CTA chest PE protocol DATE: 03/29/2021 19:45 INDICATION: Abnormal opacity overlying lateral right upper lung on 03/29/2021 2 view chest radiographi c examination. Productive cough, difficulty breathing. Covid. Smoker. TECHNIQUE: Computed tomography angiography (CTA) of the chest was performed with 100 mL Omnipaque-350 intravenous contrast timed to evaluate the pulmonary arteries. Coronal maximum intensity projection 3D-reconstructions were created by the technologist. Automated exposure control and iterative reconst ruction technique were employed. Exam dose: 959.32 mGy-cm total exam DLP. COMPARISON: 03/21/2021 2 view chest 06/17/2019 CT lung screening FINDINGS: There is diagnostic contrast enhancement of pulmonary embolism evidence of pulmonary emboli sm. There is patchy infiltrate in the lateral right upper lobe accounting for the radiographic abnormalit y. There are scattered similar patchy infiltrates scattered in the upper lobes including lingula, as well as the middle lobe and both lower lobes. There is no pleural effusion. The findings are most sug gestive of multifocal Covid pneumonia. A 1.6 cm peripherally enhancing lesion is noted projecting at the posterior aspect of the lower pole of the right lobe of the thyroid gland. Normal heart size. No pericardial or pleural effusion. No thoracic aortic aneurysm or dissection. No suspicious enlarged hilar or mediastinal lymph nodes. The adrenal glands are unremarkable. Diverticulosis of the colon. Degenerative changes of the lower cervical spine as well as the thoracic and upper lumbar spine. No s uspicious osteolytic or osteoblastic lesions are noted. IMPRESSION: Patchy bilateral pulmonary infiltrates suggestive of multifocal Covid pneumonia No evidence of pulmonary embolism Reviewed, dictated and finalized at [facility]. Reviewed, dictated and finalized at [facility]. IMPRESSION: Patchy bilateral pulmonary infiltrates suggestive of multifocal Co vid pneumonia No evidence of pulmonary embolism
--- NOTE | 2021-03-29 18:19 | ECG_ITS ---
Measurements Intervals [place] Rate: 76 P: 20 TN: 142 QRS: 13 QRSD: 85 T: 47 QT: 362 QTc: 407 Interpretive Statements SINUS RHYTHM INCOMPLETE RIGHT BUNDLE BRANCH BLOCK BORDERLINE ECG Electronically Signed On 03-30-2021 8:15:25 CDT by Serge Roach D.O.
[2021-03-29 18:22] VITALS: BP 151/85; PULSE 77; RESP 17; TEMP 37.2; O2SAT 99
[2021-03-29 18:25] VITALS: PULSE 74
[2021-03-29 18:45] LABS: Basophils Absolute Auto 0.1 K/mm3 (0.0-0.1); Basophils Percent Auto 0.5 % (0.2-1.2); Eosinophils Absolute Auto 0.1 K/mm3 (0-0.3); Eosinophils Percent Auto 1.3 % (0-4.4); Hematocrit 42.9 % (37.0-47.0); Hemoglobin 14.1 g/dL (12.0-15.0); Immature Granulocyte Absolute 0.11 K/mm3 (0.00-0.031); Immature Granulocyte Percent A 1.1 % (0-0.5); Lymphocytes Absolute Auto 2.49 K/mm3 (0.9-3.2); Lymphocytes Percent Auto 25.6 % (18.3-44.2); Mean Corpuscular HGB Conc 32.9 g/dl (32-36); Mean Corpuscular Hemoglobin 28.6 pg (26-34); Mean Platelet Volume 9.1 fl (7.4-10.4); Monocytes Absolute Auto 0.8 K/mm3 (0.1-0.6); Monocytes Percent Auto 7.8 % (2.6-8.5); Neutrophils Absolute Auto 6.2 K/mm3 (1.3-6.7); Neutrophils Percent Auto 63.7 % (45.5-73.1); Platelet Count Result 354 k/mm3 (150-375); Red Blood Count 4.93 M/mm3 (4.2-5.4); Red Cell Distribution Width 12.4 % (11.5-14.5); White Blood Count 9.7 K/mm3 (4.5-10.0)
[2021-03-29 18:49] VITALS: BP 131/86; PULSE 73; RESP 19; O2SAT 99
[2021-03-29 19:02] LABS: Anion Gap 7 mmol/L (8-16); Blood Urea Nitrogen 14 mg/dL (7-17); Calcium 9.8 mg/dL (8.4-10.2); Carbon Dioxide 26 mmol/L (22-30); Chloride 109 mmol/L (98-107); Estimated CRCL calculation 71 ml/min; Estimated Glomerular Filt Rate 57; Glucose 101 mg/dL (65-110); Potassium 3.9 mmol/L (3.4-5.0); Sodium 142 mmol/L (137-145)
[2021-03-29 19:25] VITALS: BP 140/85; PULSE 74; RESP 18; O2SAT 100
[2021-03-29] MEDS: ACETAMINOPHEN 500 MG TABLET 1000 MG PO (19:32)
--- NOTE | 2021-03-29 19:43 | ED.GENADULT ---
HPI - General Adult General Chief complaint: Shortness of Breath/Dyspnea Stated complaint: SOB Time Seen by Provider: 03/29/21 18:43 Source: patient Mode of arrival: ambulatory Limitations: no limitations History of Present Illness HPI narrative: Patient presents for evaluation of increasing sensation of shortness of breath on today. Patient states she was diagnosed with Covid 3 weeks ago but was released from quarantine about 4 to 5 days ago. Patient states that she had felt that she was improving however today she felt that she was having some sensations of feeling slightly less short of breath. Patient states she is able to take a deep breath. Patient states that she still has some dry cough. Patient reports that she went to the urgent care for evaluation and was told that she had a mass on her lung and needed to come to the emergency department for CT scanning. Patient denies present fever, chills, nausea, vomiting, wheezing, pain or swelling in her lower extremities. Patient is a past smoker. Patient denies history of blood clot or respiratory disorders. Related Data Home Medications Medication Instructions Recorded Confirmed No Home Medications 03/29/21 03/29/21 Allergies Allergy/AdvReac Type Severity Reaction Status Date / Time hydrocodone AdvReac Intermediate Vomiting Verified 03/29/21 18:26 Review of Systems Review of Systems: CONSTITUTIONAL: Denies fever, chills, or sweats. EYES: Denies visual changes, redness, or discharge. ENT: Denies rhinorrhea, congestion, sore throat, or otalgia. CARDIOVASCULAR: Denies chest pain, palpitations, or edema. RESPIRATORY: Reports cough and mild dyspnea. GASTROINTESTINAL: Denies abdominal pain, nausea, vomiting, or diarrhea. GENITOURINARY: Denies dysuria or hematuria. SKIN: Denies rash or itching. MUSCULOSKELETAL: Denies back pain, joint pain, or myalgia. NEUROLOGIC: Denies headache, numbness, dizziness, or weakness. PSYCHIATRIC: Denies anxiety or depression. [facility] Past Medical History Medical History (Updated 03/29/21 @ 20:18 by Rigoberto Santo PA-C) Asthma Diverticulitis Endometriosis High cholesterol History of kidney stones Hypercholesterolemia Morbid obesity with BMI of 40.0-44.9, adult Rectal polyp Sleep apnea Surgical History Surgical History History of carpal tunnel release History of incisional hernia repair 09/26/20 Incisional hernia repair with mesh, right-sided transversus abdominis myofascial flap advancement 6 cm. History of partial colectomy History of tubal ligation Family History Family History Father Hypertension Family history of diabetes mellitus in first degree relative Family history of lung cancer Family history of heart disease in male family member before age 55 Mother Hypertension Sibling Hypertension Cerebrovascular accident Family history of chronic obstructive pulmonary disease Family history of diabetes mellitus in first degree relative Acute myocardial infarction Social History Social History Smoking packs per day: 1 Smoking cigarettes per day: 20.0 Years smoked: 40 Smoking pack-years: 40.00 Tobacco type: cigarettes Smoking end date: 08/02/17 Additional smoking assessment comments: 1ppd x 40years Alcohol intake: never Substance use: never Additional occupation/education comments: self employed Gender identity (if verbalized by the patient): Female Sexual Orientation (if Verbalized by the Patient): Straight or Heterosexual Spiritual care concerns: No Exam Narrative: GENERAL: Well-appearing, well-nourished, and in no acute distress. Obese HEAD: Normocephalic, atraumatic. EYES: PERRLA and EOMI. NECK: Supple. No adenopathy or masses. No carotid bruits or JVD CHEST: Clear to auscultation. No respiratory distress.
[2021-03-29 20:30] VITALS: BP 128/72; PULSE 67; RESP 18; O2SAT 100
== END 2021-03-29 20:35 | disposition home or self-care (01) ==
PROVIDERS: Emergency Provider Emergency Medicine; PCP Emergency Medicine
DX: U07.1 COVID-19 (principal); J12.82 Pneumonia due to coronavirus disease 2019; J45.909 Unspecified asthma, uncomplicated; N80.9 Endometriosis, unspecified; E78.00 Pure hypercholesterolemia, unspecified; Z87.442 Personal history of urinary calculi; E66.01 Morbid (severe) obesity due to excess calories; Z68.41 Body mass index [BMI] 40.0-44.9, adult; Z87.19 Personal history of other diseases of the digestive system; G47.30 Sleep apnea, unspecified; Z90.49 Acquired absence of other specified parts of digestive tract; F17.210 Nicotine dependence, cigarettes, uncomplicated
CPT/HCPCS: 36415; 71046; 71275; 80048; 85025; 93005; 99284; A9270; Q9967